=== PATIENT | male | born 1945 | race Caucasian/White ===

== ENCOUNTER 2020-11-13 19:50 | Emergency (ER) | payer OTHER, SELFPAY ==
[2020-11-13 19:53] VITALS: BP 125/85; PULSE 94; RESP 18; TEMP 36.5; O2SAT 94
--- NOTE | 2020-11-13 20:30 | DI.RAD_ITS ---
Exam(s) XR THUMB RT EXAM: XR THUMB RT CLINICAL HISTORY: drill into distal thumb. TECHNIQUE: 2D digital imaging was performed. COMPARISON: No exams were available for comparison FINDINGS: BONES: No acute fracture is present. No bony destructive lesion is seen. JOINTS: No dislocation present. Degenerative changes are seen at the 1st CMC joint and the interphal angeal joint of the thumb with joint space narrowing and hypertrophic spurring. SOFT TISSUE: Soft tissue swelling at the distal aspect of the thumb. No radiopaque foreign body. IMPRESSION: No evidence of acute fracture, dislocation, or subluxation. DATA REPOSITORY: RADIATION DOSE DELIVERED:
--- NOTE | 2020-11-13 20:32 | ED.GENADUL_ITS ---
Discharge Plan Disposition Patient Disposition: HOME Condition: Stable Discharge Details Clinical Impression: Finger laceration Primary Care Provider: None,None ED Provider: Rossy Rizo Home Meds and New Rx's Prescriptions: Continued omeprazole 20 mg Tablet,Delayed Release (Dr/Ec) 20 mg PO PRN PRNRF: 0 Discharge Instructions Instructions: Finger Laceration (ED) Additional Instructions: X-ray is reassuring here today. Her tetanus was updated. Please keep wound clean, dry and covered. And use Tylenol and ibuprofen as needed for discomfort. Current dressing on the next 24 hours. After that time, please cover the Band- Aid. Wear gloves when appropriate. Monitor for signs infection including redness, warmth, drainage, increased pain, fever/chills. If you develop these other new/worsening symptoms please seek care urgently once again. Otherwise, please return in 7 to 9 days for suture removal. Medical Decision Making Patient is a pleasant 75-year-old male presenting today with chief complaint of laceration to the right thumb. He reports a prior to arrival he was working with a drill when he accidentally cut the. Unknown tetanus status. Denies any injuries from the incident. Denies any numbness or tingling. On exam, patient has a T shaped shredded looking laceration. Concern for potential bony involvement given the depth of the wound. He has good sensation distal to the wound. Intact capillary refill. Full range of motion at this time. Will obtain x-ray will evaluate for bony abnormality. Will update patient's tetanus status. FINDINGS: Bones/joints: No evidence of fracture. Narrowing noted at the interphalangeal and metacarpophalangeal joints, with prolific osteophyte formation. Soft tissues: Soft tissue swelling noted in the tuft of the thumb. Negative for radiopaque foreign body. IMPRESSION: No evidence of fracture. Discussed findings with the patient. Patient and I discussed risks/benefits of suture closure as well as expected procedural steps. He voices understanding and wishes to proceed. Please see procedure note. Patient tolerated this well. Wound was explored to base in bloodless field. No FB or debris noted. We discussed wound care in depth. Return precuations were discussed. He will likely return here for suture removal but does live in [place] typically. Discussed symptoms of infection. All of his questions and concerns were addressed, he is in agreement [facility] this plan. HPI General Mode of arrival: ambulatory . Date/Time Provider Initiated Documentation: 11/13/20 20:32 . Limitations to Documentation: no limitations . Information obtained by: patient and RN notes reviewed . History of Present Illness 75 year old M presents to the emergency department with the chief complaint of right thumb laceration, described as mild (denies any pain currently), Quality is described as other (no pain), and is localized to the right and upper extremity. Patient reports no radiation. Patient started experiencing this minute(s) and it has been now resolved. No relieving factors improve symptom(s), No exacerbating factors reported . Patient notes no other symptoms.. Patient did receive the following treatments prior to arrival, none Related Data Home Medications Medication Instructions Recorded Confirmed omeprazole 20 mg PO PRN PRN 11/13/20 11/13/20 Allergies Allergy/AdvReac Type Severity Reaction Status Date / Time Iodine and Iodide Containing Allergy Unverified 11/13/20 19:57 Produc Penicillins Allergy Unverified 11/13/20 19:57 shellfish derived Allergy Unverified 11/13/20 19:57 Sulfa (Sulfonamide Allergy Unverified 11/13/20 19:57 Antibiotics) General Stated Complaint: Laceration ABIGAIL: 4 Review of Systems Constitutional Constitutional: Reports as per HPI, Denies chills and Denies fever(s) Musculoskeletal Musculoskeletal: Reports as per HPI Integumentary/Breasts Skin/Breast: Reports as per HPI Neurologic Neurologic: Reports as per HPI, Denies sensory deficit and Denies paresthesias PFSH Social History Smoking/Tobacco Use Status: Current every day Tobacco Type: cigars Smoking risk assessment performed?: Yes Alcohol Intake: current Alcohol Intake frequency: a few times a week Alcohol type: hard liquor Drug use: Never Substance use type: does not use Do you feel safe at home: Yes Do you feel safe in your relationship?: Yes Exam Const General: cooperative, healthy appearing, comfortable, no acute distress and well developed Nutritional Appearance: average body habitus and well nourished Orientation: alert and awake Resp Effort & Inspection: normal respiratory effort, able to speak in complete sentences and no respiratory distress Cardio Rate: regular rate Rhythm: regular rhythm Skin Trauma: laceration Neuro General: patient alert and patient awake Cognition: normal cognition Speech: speech normal Gait: normal gait Sensory Exam: no sensory deficits noted Extrem Hand/finger images: 1. Area of laceration. Wound is overall T shaped but very jagged and irregular. Sensation intact distally. Capillary refill intact. Full ROM. Psych Appearance: grossly normal and well kempt Mental Status: mental status grossly normal Speech and Movement: speech and movement normal Course Vital Signs Vital signs: Vital Signs Temperature 36.5 C 11/13/20 19:53 Pulse 94 H 11/13/20 19:53 Respiratory Rate 18 11/13/20 19:53 Blood Pressure 125/85 11/13/20 19:53 Pulse Oximetry 94 11/13/20 19:53 Temperature 36.5 C 11/13/20 19:53 Temperature Source Temporal Artery Scan 11/13/20 19:53 Pulse 94 H 11/13/20 19:53 Respiratory Rate 18 11/13/20 19:53 Respiratory Effort Non-Labored 11/13/20 19:57 Blood Pressure 125/85 11/13/20 19:53 Blood Pressure Position Sitting 11/13/20 19:53 Pulse Oximetry 94 11/13/20 19:53 Oxygen Delivery Method Room Air 11/13/20 19:53 Oxygen Flow Rate 0 11/13/20 19:53 Pain Level 0 11/13/20 20:00 Procedures Laceration Laceration 1: Site: hand Side (If applicable): right Size (cm): 4 Description: irregular Depth: simple, single layer Local Anesthetic: Lidocaine 1% Amount of anesthesia used (mL): 6 Pre-repair: wound explored, irrigated extensively and deep structures intact Skin layer closed with: nylon Size (cm): 6-0 Number of sutures: 5 Technique: simple, interrupted
--- NOTE | 2020-11-13 21:42 | DI.VRAD_ITS ---
PROCEDURE INFORMATION: Exam: XR Right Finger(s) Exam date and time: 11/13/2020 8:36 PM Age: 75 years old Clinical indication: Other: Drill into distal thumb TECHNIQUE: Imaging protocol: XR Right fingers. Views: Minimum 2 views. COMPARISON: No relevant prior studies available. FINDINGS: Bones/joints: No evidence of fracture. Narrowing noted at the interphalangeal and metacarpophalangeal joints, with prolific osteophyte formation. Soft tissues: Soft tissue swelling noted in the tuft of the thumb. Negative for radiopaque foreign body. IMPRESSION: No evidence of fracture. Dictated and Authenticated by: Reno Shipman MD. Ordering:LARISA Blair MD
[2020-11-13 21:53] VITALS: BP 125/85; PULSE 94; RESP 18; TEMP 36.5; O2SAT 94
== END 2020-11-13 21:52 | disposition home or self-care (01) ==
PROVIDERS: Emergency Provider Physician Assistant
DX: S61.011A Laceration without foreign body of right thumb without damage to nail, initial encounter (principal); W29.8XXA Contact with other powered hand tools and household machinery, initial encounter
CPT/HCPCS: 12002; 90471; 99284; 73140; 99283